=== PATIENT | male | born 1990 | race Caucasian/White ===

== ENCOUNTER 2017-02-27 22:45 | Emergency (ER) | payer OTHER ==
[2017-02-27 23:33] VITALS: BP 132/58
== END 2017-02-27 23:33 | disposition home or self-care (01) ==
LOC: ED 22:45
DX: S00.03XA Contusion of scalp, initial encounter (principal); W22.8XXA Striking against or struck by other objects, initial encounter; Y93.89 Activity, other specified; Y92.89 Other specified places as the place of occurrence of the external cause; Y99.8 Other external cause status